=== PATIENT | female | born 1970 | race Caucasian/White ===

== ENCOUNTER 2016-08-08 05:31 | Day surgery (SDC) | payer OTHER ==
[~2016-08-08] VITALS: Ht 162.6 cm; Wt 54.4 kg
[~2016-08-08 05:31] MED LIST: DAILY MULTIPLE1 EACH PO; LEVOTHYROXINE100 MCG PO; SINGULAIR10 MG PO
[2016-08-08 06:08] VITALS: BP 110/56
[2016-08-08 06:28] LABS: EOSINOPHIL (%) 1.8 % (0-5); EOSINOPHIL COUNT 0.1 K/uL (0-0.3); HEMATOCRIT 39.7 % (36.0-46.0); IMMATURE GRANULOCYTE (%) 0.4 % (0.0-0.7); INSTRUMENT ABS NEUTROPHIL CT 4.3 K/uL; LYMPHOCYTE COUNT 1.8 K/uL (1.0-2.8); MCH 28.4 PG (29.0-34.0); MCHC 32.5 G/DL (30.0-36.0); MCV 87.4 FL (83-99); MEAN PLAT.VOLUME 10.4 uM^3 (9.5-12.4); MONOCYTE COUNT 0.5 K/uL (0-0.8); NEUTROPHIL COUNT 4.3 K/uL (1.8-6.4); PLATELET COUNT 315 K/uL (156-360); RBC DIS.WIDTH-CV 15.7 % (11.8-14.6); RBC DIS.WIDTH-SD 50.1 % (39-53); RED BLOOD COUNT 4.54 M/uL (3.80-5.20); WHITE BLOOD COUNT 6.8 K/uL (4.1-10.2)
[2016-08-08] MEDS ORDERED: ENDOCET 5-3251 EACH PO (08:32)
[2016-08-08 10:03] VITALS: BP 95/42
[2016-08-08 11:00] VITALS: BP 102/54
[2016-08-08 12:30] VITALS: BP 103/60
[2016-08-11 14:20] LABS: INTERNAL CONTROL VALID? YES
== END 2016-08-08 12:45 | disposition home or self-care (01) ==
LOC: SDC 05:31
PROVIDERS: Obstetrics & Gynecology
DX: N87.9 Dysplasia of cervix uteri, unspecified (principal); N83.8 Other noninflammatory disorders of ovary, fallopian tube and broad ligament; N92.0 Excessive and frequent menstruation with regular cycle; N80.0 Endometriosis of uterus; N94.6 Dysmenorrhea, unspecified; N73.6 Female pelvic peritoneal adhesions (postinfective); Z87.891 Personal history of nicotine dependence; E03.9 Hypothyroidism, unspecified; G47.33 Obstructive sleep apnea (adult) (pediatric)
CPT/HCPCS: 84703; 85025; 86900; 86901; 88307; J0131; J0690; J1100; J1170; J1885; J2250; J2405; J2710; J3010